=== PATIENT | female | born 2005 | race Caucasian/White ===

== ENCOUNTER 2025-10-03 09:32 | Outpatient (CLI) | payer SELFPAY ==
--- NOTE | 2025-10-03 09:38 | MR_ITS ---
WS: [id number] MRI RIGHT KNEE HISTORY: UNSTABLE R KNEE COMPARISON: None available. Anterior cruciate ligament: Mild increased signal with striations in the ACL. No tear identified. Posterior cruciate ligament: Intact. Medial collateral ligament: Intact. Posterior lateral corner structures: Intact. Medial menisci: Normal size and shape of the meniscus. Intrasubstance degeneration of the posterior horn does not contact an articular surface. No tear identified. Lateral meniscus: Intact. Normal signal, size and shape. Extensor mechanism: Distal quadriceps tendon and patellar tendons are intact. Fluid and soft tissue: No joint effusion. Very small simple Panchal's cyst. Osseous and articular structures: Patellofemoral compartment: Normal. Medial compartment: Normal. Lateral compartment: Normal. MR/MR knee RT wo con* [id number] IMPRESSION: 1. No ACL tear identified. There is a evidence for mild sprain. 2. No meniscal tear. 3. Small Panchal's cyst.
== END 2025-10-03 09:33 | disposition home or self-care (01) ==
PROVIDERS: Visit Provider Family Medicine
DX: M25.361 Other instability, right knee (principal)
CPT/HCPCS: 73721